=== PATIENT | female | born 1990 | race Caucasian/White ===

== ENCOUNTER → 2017-01-20 | Outpatient (CLI) | payer OTHER ==
--- NOTE | ~2017-01-20 | CR56 ---
[facility] A Service of [facility] & [facility] RADIOLOGY TEXT RESULTS PATIENT: GERARDO QUEZADA LOCATION: [facility] : [birth year] UNIT #: [id number] AGE: [address]: JESSE ASHFORD SEX: F ORDER DR: [id number] [facility] [address] [place], [place] [address] [id number] O MR#: [id number] Acc #: [id number] NAME: GERARDO QUEZADA : 1990 SEX: F STUDY DATE/TIME: 01/20/2017 15:49 UNIT: [facility] ROOM: STUDY DESCRIPTION: CR Calcaneus Min 2 Views Rt Attending Physician: Jesse Ashford Referring Physician: Jesse Ashford Ordering Physician: Staff Doctor Not On Primary Care Physician: Jericho Foster M.D. MEDICAL IMAGING REPORT This report is preliminary unless electronic signature is present EXAM Right calcaneus 01/20/2017 HISTORY 26-year-old female unexplained pain in right heel. Symptoms x1 month. FINDINGS Axial and true lateral views of the right heel demonstrate normal mineralization and intact cortex. There is no calcaneal spur formation. Suggested soft tissue swelling only. IMPRESSION 1. Normal calcaneus. 2. There is suggestion of some soft tissue swelling. Correlate clinically. Dictated by... Micah Walsh M.D. THIS IS AN ELECTRONICALLY VERIFIED REPORT Micah Walsh M.D. at 01/21/2017 3:34 PM JODI/pattie TD: 01/21/2017 14:54 JOB #: [id number] MEDICAL IMAGING REPORT Page 1 of 1 COPY
== END | disposition home or self-care (01) ==
LOC: CRAD 15:12
DX: R29.898 Other symptoms and signs involving the musculoskeletal system (principal)
CPT/HCPCS: 73650